=== PATIENT | female | born 1975 | race Caucasian/White ===

== ENCOUNTER → 2017-11-29 | Outpatient (CLI) | payer OTHER ==
[2017-11-29] VITALS (12 sets, daily range): BP systolic 108–125; BP diastolic 63–81
[~2017-11-29] VITALS: Ht 172.7 cm; Wt 95.3 kg
[~2017-11-29] MED LIST: ACETAMINOPHEN650 M5 PO; FLAGYL 250 MG250 MG PO; POTASSIUM20 PO; SWEEN 2457 GM
[2017-11-29 09:51] LABS: HEMOGLOBIN 13.1 gm/dL (12.0-15.0); MPV 6.8 fl. (7.2-11.1)
[2017-11-29 09:53] LABS: ABSOLUTE BASOPHILS 0.1 thou/uL (0.0-0.2); ABSOLUTE EOSINOPHILS 0.4 thou/uL (0.0-0.7); ABSOLUTE LYMPHOCYTES 1.7 thou/uL (0.8-5.3); ABSOLUTE MONOCYTES 0.7 thou/uL (0.0-1.2); ABSOLUTE NEUTROPHILS 8.3 thou/uL (1.6-8.1); BASOPHILS 0.5 %; EOSINOPHILS 3.3 %; HEMATOCRIT 38.8 % (37.0-47.0); LYMPHOCYTES 15.4 %; MCH 30.3 pg (26.0-34.0); MCHC 33.7 g/dL (28.0-37.0); MONOCYTES 6.5 %; NUCLEATED RBCS 0 /100WBC; PLATELET COUNT* 428 thou/uL (150-400); POLYS 74.3 %; RBC 4.31 mil/uL (4.20-5.00); RDW-CV 12.3 % (10.5-14.5); WBC 11.2 thou/uL (4.0-11.0)
[2017-11-29 10:09] LABS: APTT 29.4 Seconds (25.0-31.3); INR 0.9; PROTIME 9.2 Seconds (9.20-11.50)
--- NOTE | 2017-12-09 09:43 | S ---
[address] [address] SURGICAL PATH RPT PROCEDURE Name: ÓSCAR MORGAN Room: [facility] Sim.#: [id number] Admission: 11/29/17 Date of : 75 Discharge: Report #: [id number] Path Case #: [id number] PATHOLOGY REPORT COLLECTION DATE: 11/29/2017 RECEIVED DATE: 11/29/2017 SUBMITTING PHYS: Dr. Agustin Orozco OTHER PHYS: Dr. Tiki Bynum ADDENDUM REPORT (Order Date: 12/08/2017 13:51) ADDENDUM COMMENT: At the request of Dr. Orozco, the specimen is re-examined with the question of whether the tissues obtained could represent fat necrosis and with the intent of determining the need for a repeat biopsy or excision or monitoring. The slide is reviewed and the original diagnosis is agreed with although there is debris thought likely to represent keratin as well as very few epithelioid cells of uncertain etiology, possibly representing inflammatory cells versus granulosa cells of ovarian follicular cell origin. In attempts to further clarify, properly controlled immunohistochemical stains to include inhibin, LCA and keratin DRAGAN as well as additional H and E levels are performed, however, insufficient tissue survives for any further reliable interpretation although very scant material compatible with keratin is noted to be DRAGAN positive. Per discussion with Dr. Orozco on late afternoon of 12/07/2017, he notes there is a possibility of a dermoid cyst. In summary, the original diagnosis is agreed with, however, the possibility of the tissues representing fat necrosis is thought to be unlikely and they could represent a dermoid and excisional biopsy or removal of the lesion is recommended if clinically indicated. Reviewed with Dr. Xavier Montesinos. Final results discussed with Dr. Orozco at approximately 1700 on 12/08/[address] Bynum at approximately 0930 on 12/09/2017. (SIMA:db; 12/08/2017) Professional services performed by [facility] at [facility], [address] [place] [id number]. Technical services performed by [facility] at [address] [place] [address], [address] [place] [address]. ELECTRONICALLY SIGNED BY: Esdras Castañeda M.D. DATE/TIME:12/09/2017 09:43 SPECIMEN(S) RECEIVED: A.R lower quadrant abdominal mass * * * * * * * * * * * * FINAL DIAGNOSIS: [place] [address] SURGICAL PATH RPT PROCEDURE Name: ÓSCAR MORGAN Siddharth Room: [facility]#: [id number] Admission: 11/29/17 Date of : 75 Discharge: Report #: [id number] Path Case #: [id number] Soft tissue, "right lower quadrant abdominal mass": - Soft tissue revealing hyalinized fibrosis with focal chronic inflammation and some foreign suture like material. - There is no evidence of atypia or malignancy. (See comment) (SHA:kale; 11/30/2017) COMMENT: The biopsy may not be associate financial representative. Suggest clinical correlation and rebiopsy if clinically indicated. This case is also reviewed by Dr. Tiff Rogers. (DAPHNE:kale; 11/30/2017) PATHOLOGIST: Xavier Montesinos M.D. REPORT ELECTRONICALLY SIGNED BY: Xavier Montesinos M.D. DATE/TIME: 12/01/2017 09:33 * * * * * * * * * * * * GROSS PATHOLOGY: Received in formalin labeled "Óscar Soareston, right RLQ abd," and additionally labeled on the requisition as "mass," are multiple distinct needle cores of hardwick soft tissue ranging from 0.1 to 0.2 cm in length, which are filtered and submitted entirely in a biopsy bag in cassette A1. (TSD; 11/29/2017) CLINICAL HISTORY: None provided INITIAL CPT CODE(S): 00757 A; 25676, 13619, 76526 Professional services performed by [facility] [place] [address] Technical services performed by [facility] at [address] [place] [address], [address], [place] [address]. [facility] [address] [place] [address] PHONE: [phone] DIRECTOR: Wagner Guillen M.D. * * * END OF REPORT * * *
== END | disposition home or self-care (01) ==
LOC: M.CT 08:54
PROVIDERS: Family Medicine
DX: D36.7 Benign neoplasm of other specified sites (principal)